=== PATIENT | male | born 1940 | race Caucasian/White ===

== ENCOUNTER → 2016-12-30 | Outpatient (CLI) | payer MEDICARE, BC ==
[~2016-12-30] MED LIST: ASPIRIN EC81 MG PO; BENICAR HCT 401 EACH PO; DELTASONE10 MG PO; LASIX20 MG PO; PRILOSEC20 MG PO; PROVENTIL OR V6.7 GM INH; SPIRIVA18 MCG INH; TRIAMCINOLONE454 GM TOP; TYLENOL325 MG PO; ULTRAM50 MG PO; VOLTAREN75 MG PO; XANAX0.25 MG PO
== END | disposition disaster alternative care site (69) ==
LOC: GAMB 22:51
DX: R06.9 Unspecified abnormalities of breathing (principal); J44.9 Chronic obstructive pulmonary disease, unspecified; R06.00 Dyspnea, unspecified; R06.2 Wheezing; Z79.899 Other long term (current) drug therapy; Z79.82 Long term (current) use of aspirin
CPT/HCPCS: A0422; A0425; A0427; J2930